=== PATIENT | female | born 1940 | race Caucasian/White ===

== ENCOUNTER 2017-07-28 05:54 | Day surgery (SDC) | payer OTHER ==
[2017-07-28] MEDS ORDERED: ESCI5TAB PO (06:44)
[2017-07-28] MEDS ORDERED: ECASA81 PO (06:44)
[2017-07-28] MEDS ORDERED: HYDR25TA5 PO (06:44)
[2017-07-28] MEDS ORDERED: LORA0.5T PO (06:44)
[2017-07-28] MEDS ORDERED: OCUVTAB4 PO (06:44)
[2017-07-28] MEDS ORDERED: RANI150T PO (06:44)
[2017-07-28] MEDS ORDERED: POVIDONE IODINE 5% (ANTISEPSIS KIT) 4 APPLICATIONS EACH NARE SCH (06:45)
[2017-07-28] MEDS ORDERED: MUPIROCIN 2% OINT 1 APPLIC/GM SYR NASAL SCH (06:45)
[2017-07-28] MEDS ORDERED: NS 1000 ML IV SCH (06:45)
[2017-07-28] MEDS ORDERED: CHLORHEXIDINE GLUCONATE 2 % 1 PACK (2 CLOTHS) TOPICAL SCH (06:45)
[2017-07-28] MEDS ORDERED: ceFAZolin 2 GM PREMIX 50 ML IV SCH (06:45)
[2017-07-28] MEDS ORDERED: LIDOCAINE HCL 1% PF 30 ML VIAL ONE (07:00)
--- NOTE | 2017-07-28 08:07 | MA ---
cc: Nicolas Morton MD DATE: 07/28/2017 DATE OF PROCEDURE: 07/28/2017 INDICATION FOR PROCEDURE: Suspected atrial fibrillation. PROCEDURES PERFORMED: Loop recorder insertion. DESCRIPTION OF PROCEDURE: The patient was brought to the DOC Unit in the postabsorptive state. After informed consent was obtained, a [email or web address] loop recorder was inserted subcutaneously to the left chest. The patient tolerated the procedure well without any apparent complications. Initial R-wave was 0.27 millivolts. Tachybrady pause and atrial fibrillation detection was enabled. The serial number was [id number]. MD CHAPARRO Payan/BEA , 07:42 AM , 08:06 AM
== END 2017-07-28 08:21 | disposition home or self-care (01) ==
LOC: HDOC 05:54 → HDIC 05:54 → HDOC 08:21
PROVIDERS: ATTEND Nuclear Medicine Nuclear Cardiology
DX: I49.9 Cardiac arrhythmia, unspecified (principal); R00.2 Palpitations; R60.9 Edema, unspecified; I10 Essential (primary) hypertension; R53.1 Weakness; I87.2 Venous insufficiency (chronic) (peripheral); F41.9 Anxiety disorder, unspecified
CPT/HCPCS: 33282; C1764; J0690; J7030